=== PATIENT | female | born 1985 | race African-American/Black ===

== ENCOUNTER 2016-12-22 10:35 | Emergency (ER) | payer MEDICAID ==
[~2016-12-22 10:35] MED LIST: AMOXICILLIN500 M1 PO; CARAFATE1 G2 PO; CLARITHROMYCIN500 M2 PO; NORCO 5-325 TA1 EACH PO; OMEPRAZOLE40 M2 PO; PROTONIX PO; PROTONIX40 M2 PO; TYLENOL325 M2 PO; ZOFRAN PO
[2016-12-22 11:33] LABS: ALB/GLOB RATIO 1.2 (0.8-2.0); ALBUMIN 4.6 g/dl (3.5-5.0); ALKALINE PHOSPHATASE 114 U/L (33-138); ALT/SGPT 42 U/L (12-78); BILIRUBIN,TOTAL 0.6 mg/dl (0-1.5); BLOOD UREA NITROGEN 11 mg/dl (6-24); CALCIUM 9.2 mg/dl (8.5-10.5); CARBON DIOXIDE-VENOUS 21 mmol/L (22-32); CHLORIDE 110 mmol/l (96-110); CREATININE 1.04 mg/dl (0.50-1.10); GLUCOSE 126 mg/dL (70-110); SODIUM 143 mmol/L (135-145); eGFR VALUE FOR BLACK 82 mL/Min
[2016-12-22 11:37] LABS: ANION GAP 16 mmol/L (0-20)
[2016-12-22 11:38] LABS: AST/SGOT 29 U/L (10-40); POTASSIUM 4.1 mmol/L (3.7-5.1)
[2016-12-22] MEDS ORDERED: ZOFRAN ODT4 MG PO (12:05)
[2016-12-22 12:09] LABS: BASO % 0.2 % (0-2); EOS % 0.3 % (0-7); HCT-HEMATOCRIT 44.7 % (34.0-49.0); HGB-HEMOGLOBIN 15.6 gm/dl (12.0-15.5); IMMATURE GRANULOCYTES ABSOLUTE 0.03 tho/cmm (0-0.03); IMMATURE GRANULOCYTES PERCENT 0.2 % (0-0.3); LYMPH % 13.8 % (20-45); LYMPH ABSOLUTE COUNT 2.2 tho/cmm (0.8-4.5); MCHC MEAN CORPUSCULAR HGB CONC 34.9 % (32.0-36.0); MCV (MEAN CELL VOLUME) 91.6 fl (82.0-96.0); MEAN PLATELET VOLUME 11.2 cmc (9.4-12.4); MONO % 5.4 % (0-12); MONOCYTE ABSOLUTE COUNT 0.9 tho/cmm (0.0-1.2); NEUTROPHIL ABSOLUTE COUNT 12.6 tho/cmm (1.6-8.0); NEUTROPHIL-AUTOMATED 12.6 tho/cmm (1.6-8.0); NEUTROPHILS % 80.1 % (40-80); PLATELET COUNT 317 tho/cmm (150-450); RED BLOOD COUNT 4.88 mil/cmm (4.00-5.20); RED CELL DISTRIBUTION WIDTH 13.4 % (12.4-16.4); WHITE BLOOD COUNT 15.8 tho/cmm (4.0-10.0)
== END 2016-12-22 12:05 ==
LOC: EDMED 10:35
PROVIDERS: Emergency Medicine
DX: F41.0 Panic disorder [episodic paroxysmal anxiety] (principal); F17.200 Nicotine dependence, unspecified, uncomplicated
CPT/HCPCS: J2060; J2405; J7030